=== PATIENT | male | born 1945 | race Caucasian/White ===

== ENCOUNTER 2018-11-16 16:26 | Emergency (ER) | payer OTHER ==
--- NOTE | 2018-11-16 16:57 | EDPHY ---
H & P Smoking Status: Current every day smoker Time Seen by Provider: 11/16/18 16:49 HPI/ROS: CHIEF COMPLAINT: Left 5th digit skin avulsion HISTORY OF PRESENT ILLNESS: 73-year-old male history of daily warfarin use, up- to-date tetanus, was at work at [employer] he sustained superficial skin avulsion left 5th digit ulnar aspect. Originally seen at urgent care referred to the ER due to his Coumadin use. PHYSICAL EXAM (Prior to examination, patient consented to physical exam, hands were washed and my usual and customary physical exam procedures followed) 1) GENERAL: Well-developed, well-nourished, alert and oriented. Appears to be in no acute distress. 2) HEAD: Normocephalic 3) HEENT: sclera anicteric 4) LUNGS: Breathing comfortably. 5) SKIN: Left 5th digit distal phalanx ulnar aspect skin avulsion, hemostatic. 6) MUSCULOSKELETAL: FDP FDS intact. 7) NEUROLOGIC: Full sensation two-point discrimination intact (Sarita Moncada) Constitutional: Initial Vital Signs Temperature (C) 36.5 C 11/16/18 16:33 Heart Rate 74 11/16/18 16:33 Respiratory Rate 17 11/16/18 16:33 Blood Pressure 136/87 H 11/16/18 16:33 O2 Sat (%) 95 11/16/18 16:33 O2 Delivery Mode Room Air Allergies/Adverse Reactions: No Known Allergies Allergy (Unverified 11/16/18 16:32) Home Medications: Medication Instructions Recorded Coumadin 11/16/18 Has List In Car 11/16/18 MDM/Departure - MDM Procedures: Procedure: Digital nerve block Indications risks benefits discussed with patient, 1% plain lidocaine administered by myself as digital nerve block in my usual and customary fashion. The wound was then dressed with Surgicel dressing by ER staff resulting in hemostasis. Patient tolerated procedure well. (Sarita Moncada) ED Course/Re-evaluation: Care of patient under supervision of secondary supervising physician Dr Freeman . (Sarita Moncada) I did not see this patient while he was in the emergency department. However his care was discussed with the PA while the patient was in the department. I agree with treatment plan and management (Archie Freeman) - Depart Disposition: Home, Routine, Self-Care Clinical Impression: Skin avulsion Condition: Good Instructions: Skin Avulsion (ED) Additional Instructions: Return to the ER if you develop redness, swelling, discharge, warmth to the wound, red streaks going up your arm , or any other symptoms that concern you. Stand Alone Forms: Work Comp Follow Up Referrals: Follow-up, with your work comp provider in 1-2 days [Other] - As per Instructions
[2018-11-16 17:14] VITALS: BP 134/84
== END 2018-11-16 17:10 | disposition home or self-care (01) ==
PROC: 3E0U3GC Introduction of Other Therapeutic Substance into Joints, Percutaneous Approach (ICD-10-PCS; principal; 2018-11-16)
DX: S61.218A Laceration without foreign body of other finger without damage to nail, initial encounter (principal); W29.0XXA Contact with powered kitchen appliance, initial encounter; Y93.G1 Activity, food preparation and clean up; Y92.512 Supermarket, store or market as the place of occurrence of the external cause; Y99.0 Civilian activity done for income or pay; Z79.01 Long term (current) use of anticoagulants